=== PATIENT | male | born 1975 | race African-American/Black ===

== ENCOUNTER 2019-04-07 01:36 | Inpatient (IN) | payer MEDICAID ==
[2019-04-07] MEDS: ONDANSETRON 4 MG INJ IV ×2 (02:27→02:57)
[2019-04-07] MEDS: SOD CHLORIDE 0.9% 1,000 ML IV ×5 (02:27→22:04)
[2019-04-07] MEDS: HYDROmorphONE 1 MG/ML SYG IV (02:57)
[2019-04-07 04:38] LABS: ADD MAN DIFF? NO
[2019-04-07 04:39] LABS: WHITE BLOOD COUNT 14.9 10^3/ul (4.8-10.8)
[2019-04-07 04:39] LABS: BASOPHILS % 0.1 % (0.0-2.0); EOSINOPHILS % 0.1 % (0.0-7.0); HEMATOCRIT 47.2 % (42.0-52.0); HEMOGLOBIN 16.1 g/dl (14.0-18.0); LYMPHOCYTES # 1.1 10^3/ul (0.8-2.9); LYMPHOCYTES % 7.4 % (15.0-51.0); MEAN CORPUSCULAR HEMOGLOBIN 27.7 pg (29.0-33.0); MEAN CORPUSCULAR HGB CONC 34.1 g/dl (32.0-37.0); MEAN CORPUSCULAR VOLUME 81.2 fl (82.0-101.0); MEAN PLATELET VOLUME 9.2 fl (7.4-10.4); MONOCYTE # 0.7 10^3/ul (0.3-0.9); MONOCYTES % 4.7 % (0.0-11.0); NEUTROPHILS % 87.3 % (39.0-77.0); PLATELET COUNT 387 10^3/UL (140-415); RED BLOOD COUNT 5.81 10^6/ul (4.70-6.10); RED CELL DISTRIBUTION WIDTH 13.9 % (11.5-14.5)
[2019-04-07 05:01] LABS: ALBUMIN 4.9 g/dl (3.3-4.9); ALBUMIN/GLOBULIN RATIO 1.11; ALKALINE PHOSPHATASE 118 IU/L (42-121); ANION GAP 18 (5-13); ASPARTATE AMINO TRANSFERASE 18 IU/L (15-46); BILIRUBIN,INDIRECT 0.5 mg/dl (0-1.1); BILIRUBIN,TOTAL 0.5 mg/dl (0.2-1.3); BLOOD UREA NITROGEN 35 mg/dl (7-20); CALCIUM 8.6 mg/dl (8.4-10.2); CARBON DIOXIDE 20 mmol/L (21-31); CHLORIDE 99 mmol/L (97-110); CREATININE 3.74 mg/dl (0.61-1.24); Estimated GFR 22 mL/min (>60); GLUCOSE 122 mg/dl (70-220); POTASSIUM 3.9 mmol/L (3.5-5.1); SODIUM 137 mmol/L (135-144); TOTAL PROTEIN 9.3 g/dl (6.1-8.1)
[2019-04-07 05:08] LABS: ALANINE AMINOTRANSFERASE < 6 IU/L (13-69)
[2019-04-07] MEDS: hydrALAzine 20 MG INJ IV (05:26)
[2019-04-07] MEDS ORDERED: ACETAMINOPHEN 325 MG TAB PO (06:00)
[2019-04-07] MEDS ORDERED: ONDANSETRON 4 MG INJ IV (06:00)
[2019-04-07] MEDS: HALOPERIDOL 5 MG INJ IV (07:03)
[2019-04-07] MEDS: HYDROmorphONE 2 MG/ML SYG IV (09:34)
[2019-04-07] MEDS ORDERED: CIPROFLOXACIN 200 MG/D5W IVPB 100 ML IVPB (13:00)
[2019-04-07] MEDS: BISACODYL 10 MG SUPP PR (15:45)
[2019-04-07] MEDS: metroNIDAZOLE 500 MG/NS (PMX) 100 ML IVPB ×2 (15:46→22:04)
[2019-04-07 15:49] LABS: C-REACTIVE PROTEIN < 0.5 mg/dl (0.0-0.9)
[2019-04-07] MEDS: AMPICILLIN/SULB 3 GM/NS (PMX) 100 ML IVPB ×2 (15:57→22:52)
[2019-04-07 16:19] LABS: ERYTHROCYTE SEDIMENTATION RATE 10 mm/Hr (0-15)
[2019-04-07] MEDS: morphine 2 MG INJ IV ×2 (16:59→19:13)
[2019-04-07] MEDS: BISACODYL (EC) 5 MG TAB PO (16:59)
[2019-04-07 17:02] LABS: PARATHYROID HORMONE 150.9 pg/ml (24.0-73.0)
[2019-04-07] MEDS: PEG/ELECTROLYTES 4L BTL PO (19:18)
[2019-04-08] MEDS: morphine 2 MG INJ IV ×3 (03:51→21:36)
[2019-04-08] MEDS: PEG/ELECTROLYTES 4L BTL PO (06:00)
[2019-04-08] MEDS: metroNIDAZOLE 500 MG/NS (PMX) 100 ML IVPB ×3 (06:05→22:48)
[2019-04-08 06:48] LABS: ADD MAN DIFF? NO
[2019-04-08 06:50] LABS: BASOPHIL # 0.1 10^3/ul (0.0-0.1); BASOPHILS % 0.4 % (0.0-2.0); EOSINOPHILS # 0.2 10^3/ul (0.0-0.5); EOSINOPHILS % 1.7 % (0.0-7.0); HEMATOCRIT 34.3 % (42.0-52.0); HEMOGLOBIN 11.6 g/dl (14.0-18.0); LYMPHOCYTES # 1.7 10^3/ul (0.8-2.9); LYMPHOCYTES % 12.4 % (15.0-51.0); MEAN CORPUSCULAR HEMOGLOBIN 28.2 pg (29.0-33.0); MEAN CORPUSCULAR HGB CONC 33.8 g/dl (32.0-37.0); MEAN CORPUSCULAR VOLUME 83.3 fl (82.0-101.0); MEAN PLATELET VOLUME 9.2 fl (7.4-10.4); MONOCYTE # 1.3 10^3/ul (0.3-0.9); MONOCYTES % 9.6 % (0.0-11.0); NEUTROPHIL # 10.4 10^3/ul (1.6-7.5); NEUTROPHILS % 75.4 % (39.0-77.0); PLATELET COUNT 303 10^3/UL (140-415); RED BLOOD COUNT 4.12 10^6/ul (4.70-6.10)
[2019-04-08 06:50] LABS: WHITE BLOOD COUNT 13.8 10^3/ul (4.8-10.8)
[2019-04-08 07:12] LABS: ANION GAP 11 (5-13); BLOOD UREA NITROGEN 22 mg/dl (7-20); CARBON DIOXIDE 24 mmol/L (21-31); CHLORIDE 101 mmol/L (97-110); CREATININE 1.07 mg/dl (0.61-1.24); Estimated GFR > 60 mL/min (>60); GLUCOSE 94 mg/dl (70-220); INR 1.09; POTASSIUM 3.3 mmol/L (3.5-5.1); PROTIME 14.2 Sec (11.9-14.9); PT RATIO 1.1; SODIUM 136 mmol/L (135-144)
[2019-04-08 07:19] LABS: PHOSPHORUS 2.4 mg/dl (2.5-4.9)
[2019-04-08] MEDS: SOD CHLORIDE 0.9% 1,000 ML IV ×2 (07:52→18:19)
[2019-04-08] MEDS: BISACODYL (EC) 5 MG TAB PO (07:52)
[2019-04-08] MEDS: AMPICILLIN/SULB 3 GM/NS (PMX) 100 ML IVPB ×2 (09:42→22:48)
[2019-04-08] MEDS ORDERED: POTASSIUM CHLORIDE 100 ML IVPB (10:30)
[2019-04-08] MEDS: POTASSIUM CHLORIDE (SR) 20 MEQ TAB PO (10:35)
[2019-04-08] MEDS: CHOLECALCIFEROL 1,000 UNIT TAB PO (10:37)
[2019-04-08 12:58] LABS: IONIZED CALCIUM 1.1 mmol/L (1.1-1.4)
[2019-04-08] MEDS ORDERED: LACTOBACILLUS RHAMNOSUS CAP PO (13:00)
[2019-04-08] MEDS ORDERED: ERGOCALCIFEROL (8000 UNITS/ML PO SYG) PO (14:30)
[2019-04-08] MEDS: CALCITRIOL 1 MCG INJ IV (15:41)
[2019-04-08] MEDS ORDERED: ONDANSETRON 4 MG INJ IV (20:30)
[2019-04-08] MEDS ORDERED: hydrALAzine 20 MG INJ IV (20:30)
[2019-04-08] MEDS: PROPOFOL 20 ML (23:13)
[2019-04-08] MEDS: PROPOFOL 40 ML (23:13)
[2019-04-08] MEDS: HYDROmorphONE 1 MG/ML SYG IV (23:18)
[2019-04-09] MEDS: SOD CHLORIDE 0.9% 1,000 ML IV (03:24)
[2019-04-09] MEDS: metroNIDAZOLE 500 MG/NS (PMX) 100 ML IVPB ×2 (06:33→13:13)
[2019-04-09] MEDS: PANTOPRAZOLE (EC) 40 MG TAB PO (06:33)
[2019-04-09 06:51] LABS: ADD MAN DIFF? NO
[2019-04-09 06:58] LABS: WHITE BLOOD COUNT 10.4 10^3/ul (4.8-10.8)
[2019-04-09 06:58] LABS: BASOPHILS % 0.2 % (0.0-2.0); EOSINOPHILS # 0.2 10^3/ul (0.0-0.5); EOSINOPHILS % 2.3 % (0.0-7.0); HEMATOCRIT 30.6 % (42.0-52.0); HEMOGLOBIN 10.4 g/dl (14.0-18.0); LYMPHOCYTES # 2.3 10^3/ul (0.8-2.9); LYMPHOCYTES % 21.9 % (15.0-51.0); MEAN CORPUSCULAR HEMOGLOBIN 28.3 pg (29.0-33.0); MEAN CORPUSCULAR VOLUME 83.2 fl (82.0-101.0); MEAN PLATELET VOLUME 9.5 fl (7.4-10.4); MONOCYTE # 1.2 10^3/ul (0.3-0.9); MONOCYTES % 11.6 % (0.0-11.0); NEUTROPHIL # 6.6 10^3/ul (1.6-7.5); NEUTROPHILS % 63.5 % (39.0-77.0); PLATELET COUNT 256 10^3/UL (140-415); RED BLOOD COUNT 3.68 10^6/ul (4.70-6.10); RED CELL DISTRIBUTION WIDTH 13.8 % (11.5-14.5)
[2019-04-09 07:37] LABS: ANION GAP 9 (5-13); BLOOD UREA NITROGEN 8 mg/dl (7-20); CALCIUM 8.2 mg/dl (8.4-10.2); CARBON DIOXIDE 28 mmol/L (21-31); CHLORIDE 98 mmol/L (97-110); CREATININE 0.77 mg/dl (0.61-1.24); Estimated GFR > 60 mL/min (>60); GLUCOSE 87 mg/dl (70-220); MAGNESIUM 1.7 mg/dl (1.7-2.5); PHOSPHORUS 1.7 mg/dl (2.5-4.9); SODIUM 135 mmol/L (135-144)
[2019-04-09] MEDS: AMPICILLIN/SULB 3 GM/NS (PMX) 100 ML IVPB (08:15)
[2019-04-09] MEDS: CHOLECALCIFEROL 1,000 UNIT TAB PO (08:15)
[2019-04-09] MEDS: morphine 2 MG INJ IV (08:15)
[2019-04-09] MEDS: NEUTRA-PHOS 250 MG PACKET PO (10:05)
[2019-04-09] MEDS: POTASSIUM CHLORIDE (SR) 20 MEQ TAB PO (10:06)
[2019-04-09 13:21] LABS: ANCA SCREEN NEGATIVE (NEGATIVE)
[2019-04-09] MEDS: MAGNESIUM SULFATE 1 GM/D5W 100 ML IVPB (14:45)
[2019-04-10 13:27] LABS: MYELOPEROXIDASE ANTIBODY <1.0 AI; PROTEINASE-3 ANTIBODY <1.0 AI
== END 2019-04-09 16:10 | disposition home or self-care (01) | DRG 391 ==
LOC: E/R 01:36 → TEL 05:37
PROVIDERS: Internal Medicine
PROC: 0DB68ZX Excision of Stomach, Via Natural or Artificial Opening Endoscopic, Diagnostic (ICD-10-PCS; principal; 2019-04-08 17:55)
PROC: 0DBG8ZX Excision of Left Large Intestine, Via Natural or Artificial Opening Endoscopic, Diagnostic (ICD-10-PCS; 2019-04-08 17:55)
PROC: 0DBF8ZX Excision of Right Large Intestine, Via Natural or Artificial Opening Endoscopic, Diagnostic (ICD-10-PCS; 2019-04-08 17:55)
DX: A09 Infectious gastroenteritis and colitis, unspecified (principal); R65.11 Systemic inflammatory response syndrome (SIRS) of non-infectious origin with acute organ dysfunction; E87.2 Acidosis; N25.81 Secondary hyperparathyroidism of renal origin; E86.0 Dehydration; F12.90 Cannabis use, unspecified, uncomplicated; R63.4 Abnormal weight loss; Z68.22 Body mass index [BMI] 22.0-22.9, adult; E83.9 Disorder of mineral metabolism, unspecified; E87.6 Hypokalemia; D64.9 Anemia, unspecified; R00.0 Tachycardia, unspecified; K20.9 Esophagitis, unspecified; K29.70 Gastritis, unspecified, without bleeding; K64.8 Other hemorrhoids
CPT/HCPCS: 36415; 74176; 76775; 80048; 80053; 82306; 82330; 82652; 83735; 83970; 84100; 85025; 85610; 85651; 86021; 86140; 87040-91; 87045; 88305; 93005; 96374; 96375; 96376; 99285-25